=== PATIENT | male | born 1975 | race Caucasian/White ===

== ENCOUNTER 2023-04-12 01:10 | Emergency (ER) | payer OTHER ==
[~2023-04-12] VITALS: Ht 172.7 cm; Wt 74.8 kg
[2023-04-12 01:10] VITALS: BP 126/81; PULSE 91; RESP 17; TEMP 98; O2SAT 98
[2023-04-12 01:15] VITALS: BP 126/81; PULSE 91; RESP 17; TEMP 98; O2SAT 98
== END 2023-04-12 03:08 ==
LOC: MED 01:10
DX: S22.31XA Fracture of one rib, right side, initial encounter for closed fracture (principal); V49.88XA Car occupant (driver) (passenger) injured in other specified transport accidents, initial encounter; Y93.89 Activity, other specified; Y92.89 Other specified places as the place of occurrence of the external cause; Y99.8 Other external cause status
CPT/HCPCS: 71101; 99283; Q0092